=== PATIENT | female | born 1965 | race African-American/Black ===

== ENCOUNTER 2017-05-30 05:20 | Day surgery (SDC) | payer OTHER ==
[2017-05-30] VITALS (14 sets, daily range): BP systolic 107–127; BP diastolic 70–83
[~2017-05-30] VITALS: Ht 165.1 cm; Wt 87.1 kg
[~2017-05-30 05:20] MED LIST: NKM; PERMETHRIN60 GM TOPIC
[2017-05-30] MEDS ORDERED: TRAMADOL HCL50 MG ORAL (05:59)
[2017-05-30] MEDS ORDERED: AMOXICILLIN PO (05:59)
[2017-05-30] MEDS ORDERED: NEXIUM40 MG ORAL (05:59)
[2017-05-30] MEDS ORDERED: EPINEPHrine 1mg/1ml Amp ONE (06:53)
[2017-05-30] MEDS ORDERED: Bupivacaine 0.25% Inj 30ml INJ ONE ×2 (06:53→07:50)
[2017-05-30] MEDS ORDERED: Bupivacaine 0.5% Inj 30 ml vial INJ ONE ×2 (06:56→07:03)
[2017-05-30] MEDS ORDERED: Propofol 1,000mg/ 100ml btl IV ONE (07:00)
[2017-05-30] MEDS ORDERED: Hydromorphone 0.5mg/0.5ml inj IVP PRN (07:00)
[2017-05-30] MEDS ORDERED: Neostigmine 1mg/ml 10ml Inj ONE (07:00)
[2017-05-30] MEDS ORDERED: LR 1000ml ONE (07:00)
[2017-05-30] MEDS ORDERED: ePHEDrine 50mg/ml Inj ONE (07:00)
[2017-05-30] MEDS ORDERED: Zemuron 50mg/5ml Inj IV ONE (07:00)
[2017-05-30] MEDS ORDERED: Glycopyrrolate 0.2mg/ml 1ml Vial ONE (07:00)
[2017-05-30] MEDS ORDERED: Acetaminophen (Non formulary) 100 ML IV ONE (07:00)
[2017-05-30] MEDS ORDERED: fentaNYL 100 mcg/2 mL IV ONE (07:00)
[2017-05-30] MEDS ORDERED: Midazolam 2mg/2ml Inj ONE (07:00)
[2017-05-30] MEDS ORDERED: DiphenhydrAMINE 50mg/ml Inj IVP PRN (07:00)
[2017-05-30] MEDS ORDERED: Metoclopramide 10mg/2ml Inj ONE (07:00)
[2017-05-30] MEDS ORDERED: fentaNYL 100 mcg/2 mL IV PRN (07:00)
[2017-05-30] MEDS ORDERED: Succinylcholine 20mg/ml 10ml vial ONE (07:00)
[2017-05-30] MEDS ORDERED: NS Irrig 2000ml IRRIG ONE (07:00)
[2017-05-30] MEDS ORDERED: Ropivacaine 5mg/ml Vial 30ml INJ ONE (07:03)
--- NOTE | 2017-05-30 07:08 | Pre-Procedure Note/Attestation ---
Pre-Procedure Note/Attestation Complete Prior to Procedure Planned Procedure: right Procedure Narrative: shoulder scope, subacromial decompression, manipulation under anesthesia, debridement, labral repair as indicated. by Eddie. Indications for Procedure Pre-Operative Diagnosis: right shoulder post traumatic labral tear articular cartilage damage. Attestation I attest that I discussed the nature of the procedure; its benefits; risks and complications; and alternatives (and the risks and benefits of such alternatives ), prior to the procedure, with the patient (or the patient's legal employment representative). I attest that, if there was a reasonable possibility of needing a blood transfusion, the patient (or the patient's legal employment representative) was given the [place] [facility] standardized written summary, pursuant to the Anur[place] Blood Safety Act ([place] Health and Safety Code # 1645, as amended). I attest that I re-evaluated the patient just prior to the surgery and that there has been no change in the patient's H&P, except as documented below: CLAUDIA ISABEL May 30, 2017 07:08
[2017-05-30] MEDS ORDERED: Albuterol 90mcg Inhaler 8gm INH ONE (07:23)
--- NOTE | 2017-05-30 07:55 | Anethesia Preoperative Eval ---
Anesthesia Pre-op PMH/ROS General Date of Evaluation: May 30, 2017 Time of Evaluation: 07:05 Anesthesiologist: taylor ASA Score: ASA 2 Mallampati Score Class I : Soft palate, uvula, fauces, pillars visible Class II: Soft palate, uvula, fauces visible Class III: Soft palate, base of uvula visible Class IV: Only hard plate visible Mallampati Classification: Class II Surgeon: Flores Diagnosis: right shoulder labral tear Surgical Procedure: Right shoulder arthroscopy, SAD Anesthesia History: none Social History: smoking, current smoker Family History: no anesthesia problems Allergies: Coded Allergies: No Known Allergies (Unverified , 01/21/14) Medications: see eMAR Past Medical History Pulmonary: Reports: other - smoking Gastrointestinal/Genitourinary: Reports: GERD Neurologic/Psychiatric: Denies: dementia, CVA, depression/anxiety, TIA, other Endocrine: Denies: DM, hypothyroidism, steroids, other HEENT: Denies: cataract (L), cataract (R), glaucoma, [place] (L), NORTHWAY (R), other Musculoskeletal/Integumentary: Reports: OA - right hip pain, Denies: RA, DJD, DDD, edema, other Other: obesity PSxH Narrative: hysterectomy Anesthesia Pre-op Phys. Exam Physician Exam Last Vital Signs Date Time Temp Pulse Resp B/P (MAP) Pulse Ox O2 Delivery O2 Flow Rate FiO2 05/30/17 06:00 97.7 67 20 126/83 95 Room Air Constitutional: NAD Neurologic: CN 2-12 intact Cardiovascular: RRR Respiratory: CTA Gastrointestinal: S/NT/ND Airway Exam Mallampati Score: Class II MO: full Neck: thick TMD: 1fb ROM: full Teeth: missing Dentures: no upper, no lower Anesthesia Pre-op A/P Studies Pre-op Studies: EKG - sr Risk Assessment & Plan Assessment: denies changes in health, SOB, CP Plan: general with ISB block Status Change Before Surgery: No Pre-Antibiotics Drug: ancef Given Within 1 Hr of Incision: Yes Time Given: 07:15 ANTHONY ALMAGUER CRNA May 30, 2017 07:55
--- NOTE | 2017-05-30 08:53 | Immediate Post-Op Evaluation ---
Immediate Post-Op Evalulation Immediate Post-Op Evalulation Procedure: right shoulder arthroscopy and SAD Date of Evaluation: May 30, 2017 Time of Evaluation: 08:53 IV Fluids: 800 Blood Pressure Systolic: 122 Blood Pressure Diastolic: 88 Pulse Rate: 76 Respiratory Rate: 14 O2 Sat by Pulse Oximetry: 99 Temperature (Fahrenheit): 98.6 Nausea: No Vomiting: No Complications none Patient Status: awake, reacts, patent Drug: ancef Given Within 1 Hr of Incision: Yes ANTHONY ALMAGUER CRNA May 30, 2017 08:53
--- NOTE | 2017-05-30 12:13 | 48 Hour Post Anesthesia Eval ---
Post Anesthesia Evaluation Procedure: right shoulder arthroscopy and SAD Date of Evaluation: May 30, 2017 Time of Evaluation: 12:12 Blood Pressure Systolic: 117 0: 75 Pulse Rate: 71 Respiratory Rate: 11 O2 Sat by Pulse Oximetry: 99 Airway: patent Nausea: No Vomiting: No If pain is > 6 Comment: 2 Hydration Status: adequate Cardiopulmonary Status: stable Mental Status/LOC: patient returned to baseline Follow-up Care/Observations: na Post-Anesthesia Complications: none Follow-up care needed: N/A ANTHONY ALMAGUER CRNA May 30, 2017 12:13
--- NOTE | 2017-06-01 19:00 | Operative Note - Dictated ---
DATE OF OPERATION: 05/30/2017 SURGEON: Arnel Tanner M.D. RUNNING INSTRUCTOR: Vladislav Baker M.D. PREOPERATIVE DIAGNOSIS: Posttraumatic labral tear with chondral damage. POSTOPERATIVE DIAGNOSIS: Posttraumatic labral tear with chondral damage with extensive humeral head grade 3-4 loss and glenoid grade 3-4 loss. NAME OF OPERATION: 1. Right shoulder manipulation under anesthesia. 2. Glenohumeral arthroscopy and debridement of loose articular cartilage. 3. Subacromial decompression. 4. Removal of loose body. OPERATIVE FINDINGS: 1. Grade 3-4 chondromalacia, posttraumatic, humeral head and glenoid. 2. Labral tear. 3. Subacromial bursitis. 4. Adhesions, posttraumatic. 5. A large loose body of articular cartilage was identified. DESCRIPTION OF PROCEDURE IN DETAIL: The patient was brought into the operating room and identified by her name. She was placed under general anesthesia and placed into the beach-chair position. The shoulder was examined under anesthesia. There was no instability. There was a hard block to abduction at 80 degrees. There was no external rotation. With the patient fully relaxed, the arm was manipulated. Adhesions were felt to break up. We could then achieve full abduction and external rotation. There was no instability. The shoulder was prepped and draped in usual sterile fashion. The arthroscope was introduced into the glenohumeral joint atraumatically. A thorough inspection was carried out of the glenohumeral contents. There was extensive grade 3-4 damage of the articular cartilage except at the very posterior and very superior parts of the humeral head where the articular cartilage was normal with sharp demarcation. This appeared to be atraumatic lesion. There was extensive grade 3-4 changes across the glenoid surface as well. Photographs were obtained. The labral tear was identified and debrided. It was felt that a labral repair in this setting would not be appropriate as she could not be protected postoperatively. The rotator cuff was inspected and normal appearance of biceps tendon was notable. The arthroscope was next introduced into the subacromial space. There was extensive bursitis. The bursitis was trimmed back using a shaver and cautery. It was not felt that a subacromial decompression was required, but adhesions were removed. The objective was to get her moving as quickly as possible postoperatively. Upon entering the shoulder, there was a large loose body measuring approximately 6 x 4 x 6 mm. This appeared to be primarily articular cartilage, but may have had a small bony component as well. The loose body was removed after establishing an anterior portal with a cannula. Extensive arthroscopic fluid was removed from the subacromial space. Marcaine was used into the shoulder and into the subacromial space. Portals were closed using 4-0 Vicryl subcuticular. The wounds were closed. The patient was placed into a sling. She was returned to the supine position and awakened in the operating room in satisfactory condition. Arnel Tanner M.D. DR: ESVIN JOB#: [id number] CC: Arnel Tanner M.D.; [address] [place] [id number]; Fax#: [phone]
== END 2017-05-30 11:30 | disposition home or self-care (01) ==
LOC: SUR 05:20
DX: S43.401A Unspecified sprain of right shoulder joint, initial encounter (principal); M94.211 Chondromalacia, right shoulder; M75.51 Bursitis of right shoulder; M75.01 Adhesive capsulitis of right shoulder; F17.210 Nicotine dependence, cigarettes, uncomplicated; Z90.710 Acquired absence of both cervix and uterus; Z82.49 Family history of ischemic heart disease and other diseases of the circulatory system; K21.9 Gastro-esophageal reflux disease without esophagitis; M19.90 Unspecified osteoarthritis, unspecified site; W01.0XXA Fall on same level from slipping, tripping and stumbling without subsequent striking against object, initial encounter; Y93.9 Activity, unspecified; Y92.512 Supermarket, store or market as the place of occurrence of the external cause
CPT/HCPCS: 23700; 29819; 29822; J0171; J0330; J0690; J1170; J2250; J2405; J2704; J2710; J2765; J2795; J3010; J3490; J7120; 94003; 94150

== ENCOUNTER 2018-06-01 11:30 | Inpatient (IN) | payer OTHER ==
[~2018-06-01] VITALS: Ht 166.4 cm; Wt 91.6 kg
[2018-06-01] VITALS (7 sets, daily range): BP systolic 116–131; BP diastolic 72–90
[~2018-06-01 11:30] MED LIST changes: +AMOXICILLIN PO; +NEXIUM40 MG ORAL; +TRAMADOL HCL50 MG ORAL; +ceFAZolin 1gm IVPB IVPB ONE; +celeBREX 200mg Cap **SURGERY PATIENTS ONLY ORAL ONE; +oxyCONTIN 20mg tab ORAL ONE
[2018-06-01] MEDS ORDERED: Kenalog-40 1ml Vial ONE (13:53)
[2018-06-01] MEDS ORDERED: Morphine Sulfate PF 10 ML ONE (13:53)
[2018-06-01] MEDS ORDERED: Ketorolac 30mg Inj ONE (13:54)
[2018-06-01] MEDS ORDERED: Bacitracin 50000 Units Vial ONE (13:54)
[2018-06-01] MEDS ORDERED: Bupivacaine w/Epi 0.5% 30ml Vial INJ ONE (13:54)
[2018-06-01] MEDS ORDERED: LORATADINE10 M2 PO (14:03)
[2018-06-01] MEDS ORDERED: LEXAPRO10 MG ORAL (14:03)
[2018-06-01] MEDS ORDERED: celeBREX 200mg Cap **SURGERY PATIENTS ONLY ORAL ONE (14:05)
[2018-06-01] MEDS ORDERED: oxyCONTIN 20mg tab ORAL ONE (14:05)
[2018-06-01] MEDS ORDERED: Bupivacaine 0.5% 10ml INJ ONE (14:56)
[2018-06-01] MEDS ORDERED: cloNIDine 1000mcg/10ml inj ONE (14:56)
[2018-06-01] MEDS ORDERED: Lidocaine 1% Plain 30 ml INJ ONE (15:17)
[2018-06-01] MEDS ORDERED: EPINEPHrine 1mg/1ml Amp ONE (15:20)
[2018-06-01] MEDS ORDERED: LR 1000ml 1,000 ML IVLG SCH (15:24)
[2018-06-01] MEDS ORDERED: Hydromorphone 0.5mg/0.5ml inj IVP PRN (15:27)
[2018-06-01] MEDS ORDERED: fentaNYL 100 mcg/2 mL IV PRN (15:27)
[2018-06-01] MEDS ORDERED: Dexamethasone 4mg/ml vial ONE (15:27)
[2018-06-01] MEDS ORDERED: Sodium Chloride 10ml vial INJ ONE (15:27)
[2018-06-01] MEDS ORDERED: Lidocaine 1% MPF 10mg/ml 5ml ONE (15:27)
[2018-06-01] MEDS ORDERED: Ketorolac 30mg Inj IV PRN ×2 (15:30)
[2018-06-01] MEDS ORDERED: Metoclopramide 10mg/2ml Inj IVP PRN (15:30)
[2018-06-01] MEDS ORDERED: oxyCODONE HCL/Acetaminophen 5/325mg ORAL PRN (15:30)
[2018-06-01] MEDS ORDERED: HYDROcodone/Acetamin 7.5/325 tab ORAL PRN (15:30)
[2018-06-01] MEDS ORDERED: Atropine Sulfate 0.4mg/ml inj IVP PRN (15:30)
[2018-06-01] MEDS ORDERED: DiphenhydrAMINE 50mg/ml Inj IVP PRN (15:30)
[2018-06-01] MEDS ORDERED: Midazolam 2mg/2ml Inj IVP PRN (15:30)
[2018-06-01] MEDS ORDERED: Meperidine 50mg/ml Inj(FOR RIGORS ONLY) IVP PRN (15:30)
[2018-06-01] MEDS ORDERED: LORazepam Inj 2mg/ml 1ml IV PRN (15:30)
[2018-06-01] MEDS ORDERED: Norco 5mg/325mg tab ORAL PRN (15:30)
--- NOTE | 2018-06-01 15:30 | Anethesia Preoperative Eval ---
Anesthesia Pre-op PMH/ROS General Date of Evaluation: Jun 01, 2018 Time of Evaluation: 16:01 Anesthesiologist: Allison ASA Score: ASA 3 Mallampati Score Class I : Soft palate, uvula, fauces, pillars visible Class II: Soft palate, uvula, fauces visible Class III: Soft palate, base of uvula visible Class IV: Only hard plate visible Mallampati Classification: Class II Surgeon: Neto Diagnosis: L Hip Pain Surgical Procedure: L Hip Total Arthroplasty Anesthesia History: none Family History: no anesthesia problems Allergies: Coded Allergies: GABAPENTIN (Verified Allergy, Severe, 06/01/18) lose hair, shaking, stuttering Medications: see eMAR Patient NPO?: Yes NPO Date: May 31, 2018 NPO Time: 2229 Past Medical History Cardiovascular: Reports: HTN Gastrointestinal/Genitourinary: Reports: GERD Hematology/Immune: Reports: other - Ovarian CA Other: obesity - BMI 35 PSxH Narrative: CHACHA, BSO, R Shoulder Arthroscopy Anesthesia Pre-op Phys. Exam Physician Exam Last Vital Signs Date Time Temp Pulse Resp B/P (MAP) Pulse Ox O2 Delivery O2 Flow Rate FiO2 06/01/18 13:50 Room Air 06/01/18 13:44 98.0 85 20 130/90 (103) 96 Constitutional: NAD Neurologic: CN 2-12 intact Cardiovascular: RRR Respiratory: CTA Gastrointestinal: S/NT/ND Airway Exam Mallampati Score: Class II MO: full ROM: limited Teeth: missing, intact Anesthesia Pre-op A/P Risk Assessment & Plan Assessment: ASA 3 Plan: GA, Spinal , SED Status Change Before Surgery: No Pre-Antibiotics Dru Grams Ancef IV Given Within 1 Hr of Incision: Yes Time Given: 16:16 Dilip Cooper MD Jun 01, 2018 15:30
--- NOTE | 2018-06-01 15:32 | Immediate Post-Op Evaluation ---
Immediate Post-Op Evalulation Immediate Post-Op Evalulation Procedure: L Total Hip Arthroplasty Date of Evaluation: Jun 01, 2018 Time of Evaluation: 18:32 IV Fluids: 800 LR Blood Products: 0 Estimated Blood Loss: 50 Urinary Output: 100 Blood Pressure Systolic: 126 Blood Pressure Diastolic: 80 Pulse Rate: 98 Respiratory Rate: 16 O2 Sat by Pulse Oximetry: 100 Temperature (Fahrenheit): 97.4 Pain Score (1-10): 2 Nausea: No Vomiting: No Complications 0 Patient Status: awake, reacts, patent, none Hydration Status: adequate Dru Grams Ancef IV Given Within 1 Hr of Incision: Yes Time Given: 16:16 Dilip Cooper MD Jun 01, 2018 15:32
--- NOTE | 2018-06-01 15:33 | 48 Hour Post Anesthesia Eval ---
Post Anesthesia Evaluation Procedure: L Total Hip Arthroplasty Date of Evaluation: Jun 01, 2018 Time of Evaluation: 20:43 Blood Pressure Systolic: 143 0: 89 Pulse Rate: 87 Respiratory Rate: 18 Temperature (Fahrenheit): 98.2 O2 Sat by Pulse Oximetry: 98 Airway: patent Nausea: No Vomiting: No Pain Intensity: 2 Hydration Status: adequate Cardiopulmonary Status: Stable Mental Status/LOC: patient returned to baseline Follow-up Care/Observations: 0 Post-Anesthesia Complications: 0 Follow-up care needed: ready to discharge Dilip Cooper MD Jun 01, 2018 15:32
[2018-06-01] MEDS ORDERED: LR 1000ml ONE (16:00)
[2018-06-01] MEDS ORDERED: NS Irrig 2000ml IRRIG ONE (16:00)
[2018-06-01] MEDS ORDERED: NS Irrig 1000ml ONE (16:00)
[2018-06-01] MEDS ORDERED: Propofol 200mg/20ml IV ONE (16:00)
[2018-06-01] MEDS ORDERED: Sterile Water Irrig 1000ml IRRIG ONE (16:00)
--- NOTE | 2018-06-01 16:16 | Pre-Procedure Note/Attestation ---
Pre-Procedure Note/Attestation Complete Prior to Procedure Planned Procedure: left Procedure Narrative: juan carlos Indications for Procedure Pre-Operative Diagnosis: left hip traumactic oa Attestation I attest that I discussed the nature of the procedure; its benefits; risks and complications; and alternatives (and the risks and benefits of such alternatives ), prior to the procedure, with the patient (or the patient's legal specialty sales representative). I attest that, if there was a reasonable possibility of needing a blood transfusion, the patient (or the patient's legal specialty sales representative) was given the [facility] standardized written summary, pursuant to the Anurag [place] Blood Safety Act ([place] Health and Safety Code # 1645, as amended). I attest that I re-evaluated the patient just prior to the surgery and that there has been no change in the patient's H&P, except as documented below: Fausto Duque MD Jun 01, 2018 16:16
--- NOTE | 2018-06-01 16:17 | Operative Note - PDOC ---
Operative Note Operative Note Pre-op Diagnosis: left hip traumactic oa Procedure: see op report Post-op Diagnosis: same as pre-op plus Operative Findings: consistent w/pre-op dx studies Anesthesia: regional Specimen: none Complications: none Condition: stable Estimated Blood Loss: none Implant(s) used?: Yes Fausto Duque MD Jun 01, 2018 16:17
[2018-06-01] MEDS ORDERED: Tranexamic Acid 1,000 MG in NS 65 ML IVPB ONE (17:00)
[2018-06-01] MEDS ORDERED: Bacitracin Irrig 2000ml IRRIG ONE (17:23)
[2018-06-01] MEDS ORDERED: Duramorph PF 10mg/10ml amp EPIDUR ONE (17:32)
--- NOTE | 2018-06-01 19:30 | NUR ---
NURSE NOTES: Received patient aox4, able to verbalize needs, denies pain. No sensation to lower extremities due to spinal block. On liquid diet but will advance to regular diet as tolerated, currently eating pudding. Pt denies nausea. IV site L hand, patent, dressing dry and intact. Bed on lowest position, 2 side rails up, call light within reach.
--- NOTE | 2018-06-01 19:34 | NUR ---
UPON TRANSFER TO FLOOR CARE, AWAKE ALERT ORIENTED, DUE TO SPINAL BLOCK STILL NEGATIVE SENSATION AND MOTOR ON BOTH LOWER EXTREMITIES. DENIES ANY PAIN ON THE OPERATIVE SITE
[2018-06-01] MEDS ORDERED: Milk of Magnesia 30ml Ud ORAL PRN (19:49)
[2018-06-01] MEDS ORDERED: HYDROmorphone 1mg/ml Carpuject SUBQ PRN (19:51)
[2018-06-01] MEDS: oxyCONTIN 20mg tab ORAL SCH (21:00)
[2018-06-01] MEDS: D5 1/2NS w/KCl 20mEq 1,000 ML IV SCH (21:26)
[2018-06-01] MEDS: oxyCODONE 5mg IR tab ORAL PRN (22:04)
--- NOTE | 2018-06-01 23:00 | Operative Note - Dictated ---
DATE OF OPERATION: 06/01/2018 PREOPERATIVE DIAGNOSIS: Left hip posttraumatic arthrosis. POSTOPERATIVE DIAGNOSIS: Left hip posttraumatic arthrosis. PROCEDURE: Left total hip arthroplasty, complicated by BMI over 40. SURGEON: Fausto Duque M.D. ANESTHESIA: Spinal and general. INDICATION FOR PROCEDURE: The patient is a pleasant 52-year-old female with progressive left hip pain, was indicated for operative fixation with left total hip arthroplasty. Risks, limitations, expectations, and complications of procedure were discussed in detail. All questions were addressed. DESCRIPTION OF PROCEDURE: After informed consent was obtained, the patient was brought to the operating room. The patient was placed under general and spinal anesthesia. The patient was then carefully placed in the lateral decubitus position. Left hip was prepped and draped in a sterile manner. Time-out was performed. Posterior skin incision was then made. Fascia ernie was incised. Piriformis and short external rotators were T'd. Hip was dislocated and C2 neck cut was then made. Anterior and inferior acetabular were placed. Excess labrum was removed. Sequential reaming up to [address] 52 head for stablility reasons. Once the acetabular components were placed using anatomic landmarks, the neutral liner was placed. At this point, the femoral neck was placed. Sequential broaching up to size 3 was performed till it was pretty tight and was slightly higher on the calcar. Intraoperative imaging showed leg lengths relatively equal. However, given the position was felt that going down to -2 stem would be appropriate. Therefore, -2 stem was placed along with zero head and neck combo. Hip was reduced and flexed to 120 degrees, 90 flexion internal rotation, extension was stable. Leg lengths were equal at this point. The capsule was reapproximated with two drill holes to the greater trochanter. Fascia ernie was approximated with #1 Vicryl suture, 2-0 Vicryl suture, and 3-0 Monocryl suture. Steri-Strips and sterile dressing were applied. The patient was awoken and taken to the recovery room with stable vital signs. ESTIMATED BLOOD LOSS: 50 mL. COMPLICATIONS: None. SPECIMENS: None. IMPLANTS: Include size 52 acetabular component, size 2 Accolade stem with zero head and neck combo. Fausto Duque M.D. DR: Dipak JOB#: [id number] CC:
[2018-06-02] VITALS: BP 119/72
[2018-06-02] MEDS ORDERED: ceFAZolin sod 2 GM in D5W 110 ML IV SCH ×2
[2018-06-02] MEDS: ceFAZolin 2gm/50ml Premix 50 ML IV SCH ×2 (00:07→08:24)
[2018-06-02 04:00] VITALS: BP 122/72
--- NOTE | 2018-06-02 04:10 | NUR ---
NURSE NOTES: Patient now able to move lower extremities including wiggling of toes, able to feel sensation. Patient c/o pain, given prn medication. Able to tolerate liquids and food. Anxious to get up, advised to wait for PT evaluation, verbalized understanding. Will continue to monitor.
[2018-06-02] MEDS: oxyCODONE 5mg IR tab ORAL PRN (06:23)
--- NOTE | 2018-06-02 07:09 | NUR ---
HAND-OFF: Report given to Chrystal Martinez RN. Pt denies pain, stable.
--- NOTE | 2018-06-02 07:35 | NUR ---
NURSE NOTES: Received report from GI Wright. Patient a/o x4 and having breakfast. Denies any pain at this time. Bed in lowest position and call light within reach. Will continue to monitor.
[2018-06-02 08:00] VITALS: BP 123/74
[2018-06-02] MEDS: Docusate 100mg cap ORAL SCH ×2 (08:22→12:28)
[2018-06-02] MEDS: oxyCONTIN 20mg tab ORAL SCH (08:23)
[2018-06-02] MEDS: D5 1/2NS w/KCl 20mEq 1,000 ML IV SCH (10:20)
[2018-06-02 12:00] VITALS: BP 131/82
--- NOTE | 2018-06-02 13:47 | NUR ---
CASE MANAGEMENT: REVIEW 52/F DIRECT ADMIT FROM HOME CC: LEFT HIP PAIN SI: LEFT HIP OSTEOARTHRITIS . LEFT HIP POSTTRAUMATIC ARTHROSIS . LEFT HIP TOTAL ARTHROPLASTY COMPLICATED BY BMI OVER 40 06/01 T 97.4 HR 99 RR 16 BP 126/79 SAT 100% SIMPLE MASK 8.0 IS: OXYCONTIN 20MG PO X1 CELEBREX PO X1 CEFAZOLIN IV X1 KENALOG-40 X1 MORPHINE IV X1 ANCEF IV X1 LACTATED RINGER'S IV X1 INTERQUAL CRITERIA MET: PATIENT ADMITTED TO MED/SURG UNIT 06/01/2018 DCP: PATIENT IS FROM HOME
--- NOTE | 2018-06-02 14:00 | NUR ---
NURSE NOTES: Dr. Duque ordered discharge with resume home meds. Noted and carried out.
--- NOTE | 2018-06-02 15:07 | NUR ---
PT Note PT eval completed, treatment initiated. Patient is cooperative but required constant verbal cues to observe THR precautions. Patient needs PT services to improve her muscle strength and instruct her on THR precautions for safe transfers and gait. Recommend HHPT on DC. Addendum: 06/02/18 at 1508 by CAPRICE CHEATHAM PT Amended: Links added.
[2018-06-02 16:00] VITALS: BP 130/82
--- NOTE | 2018-06-02 16:49 | NUR ---
NURSE NOTES: Discharge instruction was given. Walker and raised toilet seat wee given to the patient. All belongings checked and given to the patient. Removed IV line and discharged by herself in stable condition.
--- NOTE | 2018-06-02 23:45 | Progress Note ---
DATE: 06/02/2018 NOTE: "POOR AUDIO QUALITY" SUBJECTIVE: female, who was admitted to the hospital to undergo surgery. She is doing well. She denies any fever, chills, nausea, vomiting, or diarrhea. She denies any chest pain or palpitation. I evaluated the patient today with the nursing staff. She is status post left total hip arthroplasty. She has had minimal preoperative blood loss. She is doing well. PAST MEDICAL HISTORY: 1. Metastatic papillary serous carcinoma. 2. Uterine fibroid. 3. She is status post myomectomy and CHACHA-BSO. She underwent surgery without difficulty. Postoperatively, the patient was taken to the PACU and subsequently after that when cleared was transferred to ____. The patient has had physical therapy and occupational therapy. She has voided. PLAN: She will be discharged home to have physical therapy as an outpatient. Preoperatively, antibiotic prophylaxis was given and postoperatively, prophylaxis will begin. Johny Dunaway M.D. DR: KATLYN JOB#: [id number] CC:
--- NOTE | 2018-06-03 11:30 | Discharge Summary ---
Discharge Summary Hospital Course Date of Admission Jun 01, 2018 at 13:11 Date of Discharge Jun 02, 2018 at 17:00 Admitting Diagnosis Left hip posttraumatic arthrosis. Reason for Hospitalization: elective surgery NEFTALY Watt is a 52 year old female who was admitted on Jun 01, 2018 at 13: 11 for Left Hip Osteoarthritis. 52-year-old female with progressive left hip pain, was indicated for operative fixation with left total hip arthroplasty. Risks, limitations, expectations, and complications of procedure were discussed in detail. All questions were addressed. Patient was consented for surgery and was admitted for elective surgery. Consultations Dr. Dunaway -MICHELE Procedures s/p 06/01/[address] Duque Left total hip arthroplasty, complicated by BMI over40. Hospital Course status post surgery course of recovery uneventful initially IV fluids s/p perioperative antibiotics neurovascular status closely monitored, stable incision with dressing clean , dry and intact pain management addressed ; pain controlled remains hemodynamically stable ambulated with PT with front wheel walker fall precautions maintained; safe for ambulation tolerated diet , IV fluids discontinued antiemetics were on board as needed voided freely bowel regimen instituted patient was stable for discharge continued with outpatient physical therapy discharge instructions provided follow up with surgeon as advised and primary care provider FINAL DIAGNOSES left hip posttraumatic arthrosis s/p Left total hip arthroplasty obesity history of metastatic papillary serous carcinoma, s/p myomectomy and CHACHA-BSO Discharge Medications Continued Medications: Escitalopram Oxalate* (Lexapro*) 10 Mg Tablet 10 MG ORAL DAILY, TAB (This prescription has been renewed) Loratadine (Loratadine) 10 Mg Tablet 10 MG PO DAILY, TAB (This prescription has been renewed) Tramadol Hcl* (Ultram*) 50 Mg Tablet 50 MG ORAL Q6H PRN for For Pain, #30 TAB 0 Refills (This prescription has been renewed) Discharge Condition Upon Discharge: stable Discharge Disposition Patient was discharged to Home () Discharge Instructions Discharge Instructions Special Instructions I have been assigned to complete a D/C Summary on this account. I was not involved in the patient management Shannan Cabral NP Jun 03, 2018 11:30
--- NOTE | 2018-06-04 08:43 | Diagnostic Imaging Report ---
Indication: Intraoperative Technique: One view of the pelvis Comparison: none Findings: Single intraoperative radiograph demonstrates an acetabular cup and a left femoral broach, both in good position Impression: Intraoperative imaging, as described
--- NOTE | 2018-06-04 08:44 | Diagnostic Imaging Report ---
Indication: Postoperative, status post hip arthroplasty Technique: One view of the pelvis Comparison: One hour earlier Findings: Left hip hemiarthroplasty prosthesis present, in good position. Air within the soft tissues as noted, to a retained from the surgical exposure. Slaughter catheter is present Impression: Postoperative left hip, no unusual features
== END 2018-06-02 17:00 | disposition home or self-care (01) | DRG 470 ==
LOC: SDSOVERFLO 13:11 → 3E 19:54
PROC: 0SRB0JZ Replacement of Left Hip Joint with Synthetic Substitute, Open Approach (ICD-10-PCS; principal; 2018-06-01 16:00)
DX: M16.52 Unilateral post-traumatic osteoarthritis, left hip (principal); Z85.89 Personal history of malignant neoplasm of other organs and systems; F17.200 Nicotine dependence, unspecified, uncomplicated; Z90.710 Acquired absence of both cervix and uterus; Z90.722 Acquired absence of ovaries, bilateral
CPT/HCPCS: 36415; 72170; 86850; 86900; 86901; 87081; 94003; 94150; J2405